=== PATIENT | female | born 1965 | race Caucasian/White ===

== ENCOUNTER 2023-12-15 18:55 | Emergency (ER) | payer OTHER, SELFPAY ==
[2023-12-15 18:56] VITALS: BP 134/84
--- NOTE | 2023-12-15 22:15 | ED.GENMED ---
History of Present Illness
<LIZBETH Aguirre - Last Filed: 12/16/23 06:37>
General
Chief Complaint: Swelling
Source: patient
Exam Limitations: none
Time Seen by Provider: 12/15/23 22:04
Nursing documentation reviewed up to this point in time: agreed with
Travel History
Have you had any contact with someone who has COVID-19?: No
Do you have any symptoms of coronavirus? Fever > 100 degrees, chills, cough, shortness of breath, sore throat, loss of taste or smell, muscle aches, or headache?: No
History of Present Illness
History of Present Illness:
This is a 58 year old female with history of DM who presents to the ED w/ c/o b/l lower extremity swelling x1 day. Patient reports she noticed the LE swelling today when she looked at her legs. She denies any pain, stiffness, or loss of ROM. She
reports she came back from [place] 4 days ago where she had nausea, vomiting, and diarrhea x4 days. She was seen in the ER and treated. She flew back home 4 days later and did not notice any swelling at the time. Her last episode of diarrhea was
Friday. She also reports excessive thirst and excessive urination x1-2 days. She denies dysuria, odor, urge, or incontinence. She denies chest pain, sob, fevers, palpitations, or headache. She admits drinking while in [place]. She denies illicit
drugs or smoking tobacco. She denies wearing compression socks or ambulating during her flight. She denies HRT therapy or family history of blood clots.
Past History
<LIZBETH Aguirre - Last Filed: 12/16/23 06:37>
Past History
ED Past Medical History: Negative HTN or Hypercholesterolemia
ED Past Surgical History: Gynecological; Negative Cholecystectomy
Social History
Tobacco: Smoker
Alcohol: Occasional
Drug: None
Personal:
Living: with family
Employment: Employed
Family History
Family History: Other (Noncontributory)
Review of Systems
<LIZBETH Aguirre - Last Filed: 12/16/23 06:37>
Review of Systems
Allergies reviewed?: Yes
All Other Systems: Not applicable
Constitutional: Reports other (Excessive thirst)
EENT: Reports no symptoms
Respiratory: Reports no symptoms
Cardiac: Reports no symptoms
ABD/GI: Reports no symptoms
: Reports frequency (Excessive urination)
Musculoskeletal: Reports joint swelling (Lower extremity swelling)
Skin: Reports no symptoms
Neurological: Reports no symptoms
Endocrine: Reports no symptoms
Hematologic/Lymphatic: Reports no symptoms
Psychiatric: Reports no symptoms
Phy Exam
<LIZBETH Aguirre - Last Filed: 12/16/23 06:37>
General Physical Exam
General Presentation: well appearing and no apparent distress
General Skin: warm and dry
General Habitus: normal
General Mental: alert
General Hydration: appears well hydrated
ENT Exam
ENT Exam: EOMI, pharynx normal, neck supple and normocephalic
Eye Exam
Eye Exam: PERRL, cornea clear and conjunctiva normal
Cardiovascular Exam
Cardiovascular Exam: regular rate/rhythm, no edema, no murmur and normal peripheral pulses
Pulmonary Exam
Pulmonary Exam: lungs clear, no respiratory distress, no rales, no crackles, no rhonchi, no stridor, no wheezing and no cough
Gastrointestinal Exam
Gastrointestinal Exam: normal bowel sounds, non tender, soft, no organomegaly, no pulsatile mass and non distended
Neurological Exam
Neurological Exam: alert, oriented x3, no motor deficits and speech normal
Musculoskeletal Exam
Musculoskeletal Exam: full ROM, no edema and joint swelling (Lower extremity)
Skin Exam
Skin Exam: normal color, warm/dry, no rash and no petechia
Psychiatric Exam
Psychiatric Exam: normal mood/affect
Scores
<Taylor Hoffman DO - Last Filed: 12/15/23 23:35>
Heart Failure Risk
Heart Failure Risk Score: Not Applicable
Course
<LIZBETH Aguirre - Last Filed: 12/16/23 06:37>
Orders/Labs/Results
Orders:
Orders
12/15/23 22:20
Venous Doppler Lwr Ext Bilat [US Periph Venous LOWER Ext Dewayne] Urgent
Comment:
Reason For Exam: Swelling
Vital Signs
Initial and Last Documented VS:
Initial Vital Signs
Temp Pulse Resp BP Pulse Ox
98.8 F 96 18 134/84 98
12/15/23 18:56 12/15/23 18:56 12/15/23 18:56 12/15/23 18:56 12/15/23 18:56
Last Documented Vital Signs
Temp Pulse Resp BP Pulse Ox
98.8 F 96 18 122/80 97
12/15/23 18:56 12/15/23 18:56 12/15/23 18:56 12/15/23 23:04 12/15/23 23:05
<Taylor Hoffman DO - Last Filed: 12/15/23 23:35>
Orders/Labs/Results
Orders:
Orders
12/15/23 22:20
Venous Doppler Lwr Ext Bilat [US Periph Venous LOWER Ext Dewayne] Urgent
Comment:
Reason For Exam: Swelling
Vital Signs
Initial and Last Documented VS:
Initial Vital Signs
Temp Pulse Resp BP Pulse Ox
98.8 F 96 18 134/84 98
12/15/23 18:56 12/15/23 18:56 12/15/23 18:56 12/15/23 18:56 12/15/23 18:56
Last Documented Vital Signs
Temp Pulse Resp BP Pulse Ox
98.8 F 96 18 122/80 97
12/15/23 18:56 12/15/23 18:56 12/15/23 18:56 12/15/23 23:04 12/15/23 23:05
<LIZBETH Aguirre - Last Filed: 12/16/23 06:37>
MDM/Problems Addressed
Differential Diagnosis Includes:
DVT, PE, dehydration, Dependent edema
DVT/PE considered due to lower extremity swelling however less likely due to lack of other symptoms. Her vitals are stable. She is not tachycardiac or short of breath. Dehydration considered but less likely due to her recent symptom and resolution
of vomiting/diarrhea. Her last episode of diarrhea was Friday and she reports she has been hydrating herself. Dependent edema considered due to recent flight and lack of recent ambulation. Her remainder of her exam is normal. Patients b/l lower
extremity ultrasound negative. Informed patient to keep LE elevated, continue ambulation, and wear compression socks to help reduce swelling.
<Taylor Hoffman DO - Last Filed: 12/15/23 23:35>
*Radiology
Radiology exam reviewed: radiology read reviewed (Venous Doppler bilateral lower extremities negative for DVT)
*Pulse Oximetry
Patient hypoxic: no
*Critical Care Note
Total Time (30-74mins, 75-104mins- exclusive of procedures): Not Applicable
ED Attending Note
<LIZBETH Aguirre - Last Filed: 12/16/23 06:37>
-
Portions of this chart may have been created with voice recognition software.� Occasional wrong word or��sound alike� substitutions may have occurred due to the inherent limitations of voice recognition software.
<Taylor Hoffman DO - Last Filed: 12/15/23 23:35>
ED Attending Note
Patient seen and examined by attending physician: Yes
I performed the substantive portion of visit, reviewed & personally made and approve the management plan that is documented in note by myself or ALAINA.: Yes
I performed a history and physical exam of patient and discussed management with resident, I reviewed resident's note and agree with documented findings and plan of care.: Yes
ED Attending Note:
This is a 58-year-old woman with no significant past medical history was vacationing in [place] last week when she developed nausea, vomiting, diarrhea treated in an ED in [place] with IV fluids. She returned home 4 days ago and has been overall
slowly improving with last episode of loose stool 2 days ago and last episode of vomiting 3 to 4 days ago. She has not had a fever nor chills. No cough nor chest pain nor shortness of breath nor palpitations. She does however note bilateral lower
extremity swelling left greater than right that began this afternoon, seemed worse this evening but currently improved. She denies pain, no joint pain.
No history of similar episodes in the past. She has been tolerating clear liquids and has been urinating well.
GENERAL: Alert , in no apparent distress
EYE: pupils equal and reactive. anicteric
NECK: Supple, nontender, no meningismus, no significant adenopathy.
ENT: Oral mucosa is moist.
CARDIAC: Regular rate and rhythm. no murmur.
LUNGS: Clear breath sounds bilaterally, no acute respiratory distress, no wheezes/rales/rhonchi
ABDOMEN: Soft, nondistended, without focal tenderness, no r/g, no cvat. normoactive BS.
NEUROLOGICAL: Alert and oriented x3, no focal neuro deficits. Gait is steady.
SKIN: Warm and dry, normal color, skin intact. No rash.
MUSCULOSKELETAL: No clubbing or cyanosis. Trace to +1 pitting edema bilateral lower extremities left greater than right, peripheral pulses are full and equal b/l. No palpable tenderness.
PSYCH: Normal and appropriate interaction.
Concern for dependent edema, other consideration is DVT especially in light of recent air travel.
Nothing in history nor exam to suggest CHF. Clinically appears euvolemic.
Will check ultrasound bilateral lower extremities.
12/15/2023 2334 PM
Ultrasound is negative for DVT.
I suspect an element of dependent edema likely related to recent travel to hot humid environment along with recent treatment with IV fluids for GI illness.
Recommend supportive measures, elevating legs, utilizing compression stockings.
Prompt follow-up with PCP for recheck.
Return precautions discussed.
Discharge Plan
Departure
Patient Disposition: Home (Routine Discharge)
Date of Disposition: 12/15/23
Time of Disposition: 23:32
Patient with high blood pressure during this ER visit?: No
Condition: Good
Discharge Problem:
Dependent edema
Instructions: Dependent Edema (DC)
Prescriptions:
No Action
lorazepam 0.5 MG tablet
0.5 mg PO DAILYPRN PRN (Reason: anxiety)
escitalopram oxalate 10 MG tablet
15 mg PO DAILY
cholecalciferol (vitamin D3) 2,000 UNITS tablet
2,000 units PO DAILY
Zinc/C+
1 tab sublingual DAILY
acetaminophen 325 MG tablet
650 mg PO Q4HPRN PRN (Reason: mild pain/MCINTOSH/temp> 100.4F) 0RF
prochlorperazine maleate 10 MG tablet
10 mg PO Q8HPRN PRN (Reason: n/v) Qty: 12 0RF
pantoprazole 40 MG tablet,delayed release (DR/EC)
40 mg PO DAILY Qty: 30 0RF
Referrals:
Shonda Leigh MD [Family Provider] - Call in 1-3 days for appt
Interventions
Interventions:
*Risk Screen - Suicide Last Done: 12/15/23 18:56
*General Assessment Last Done: 12/15/23 23:05
*Neglect/Abuse Screening Last Done: 12/15/23 18:56
ED- Fall Risk Assessment Last Done: 12/15/23 23:05
*ED COVID-19 Vaccine History Last Done: 12/15/23 23:05
*Nursing Disposition Last Done: 12/15/23 23:45
ED- Cardiac Assessment Last Done: 12/15/23 23:05
ED- Pulmonary Assessment Last Done: 12/15/23 23:05
ED-Skin Assessment Last Done: 12/15/23 23:05
Discharge Date and Time
Discharge Date/Time: 12/15/23 23:55
Print Language: SOMALI
[2023-12-15 23:04] VITALS: BP 122/80; BMI 23.8
== END 2023-12-15 23:55 | disposition home or self-care (01) ==
LOC: EMR 18:55
PROVIDERS: EMERGENCY PHYSICIAN Emergency Medicine; FAMILY PHYSICIAN Family Medicine
DX: R60.0 Localized edema (principal); R63.1 Polydipsia; R19.7 Diarrhea, unspecified; R35.0 Frequency of micturition; E11.9 Type 2 diabetes mellitus without complications; F41.9 Anxiety disorder, unspecified; F32.A Depression, unspecified; F17.200 Nicotine dependence, unspecified, uncomplicated
CPT/HCPCS: 99284; 93970